=== PATIENT | female | born 1980 | race Caucasian/White ===

== ENCOUNTER 2020-08-03 12:23 | Emergency (ER) | payer OTHER, MEDICAID, SELFPAY ==
[2020-08-03 12:30] VITALS: BP 162/109; PULSE 101; PULSE 91; RESP 20; RESP 26; TEMP 37.1; O2SAT 100; BMI 22.2
[2020-08-03 12:31] VITALS: BP 162/109; PULSE 85; RESP 21; O2SAT 100
[2020-08-03] MEDS: ONDANSETRON 4 MG/2 ML INJ (12:45)
[2020-08-03 13:00] VITALS: BP 147/95; PULSE 77; RESP 21; O2SAT 98
[2020-08-03 13:16] LABS: Prothrombin Time 10.6 SECONDS (10.1-12.7)
[2020-08-03 13:18] LABS: PTT Partial Thromboplastin Tim 31 SECONDS (26.4-36.2)
[2020-08-03 13:19] LABS: Alanine Aminotransferase 31 IU/L (<35); Albumin 5.1 g/dL (3.5-5.0); Albumin Globulin Ratio 1.2 (1.0-2.8); Alkaline Phosphatase 83 U/L (38-126); Aspartate Aminotransferase 37 IU/L (14-36); BUN Creatinine Ratio 13.6 (6-22); Bilirubin Total 0.7 mg/dL (0.2-1.3); Blood Urea Nitrogen 12 mg/dL (7-17); Carbon Dioxide 21 mmol/L (22-32); Chloride 96 mmol/L (98-107); Estimated Glomerular Filt Rate > 60.0 mL/min (>60); Globulin 4.2 g/dL (1.7-4.1); Glucose 115 mg/dL (70-100); HEMOLYSIS 16 (0-50); Lipase 65 U/L (23-300); Potassium 3.1 mmol/L (3.4-5.1); Sodium 133 mmol/L (137-145); Total Protein 9.3 g/dL (6.3-8.2)
[2020-08-03 13:24] LABS: Add Manual Diff / Slide Review NO; Basophils Absolute Auto 0 /uL (0-100); Basophils Percent Auto 0.4 % (0-2); Eosinophils Absolute Auto 0 /uL (0-450); Eosinophils Percent Auto 0.4 % (2-4); Hematocrit 46.5 % (36-46); Hemoglobin 15.6 g/dL (12.0-16.0); Lymphocytes Absolute Auto 2600 /uL (1100-4500); Mean Corpuscular HGB Conc 33.5 % (30-36); Mean Corpuscular Hemoglobin 29.5 PG (26-34); Mean Corpuscular Volume 88.2 fL (80-100); Monocytes Absolute Auto 1600 /uL (0-900); Monocytes Percent Auto 13.5 % (3-14); Neutrophils Absolute Auto 7400 /uL (1500-7000); Neutrophils Percent Auto 63.7 % (50-75); Platelet Count 415 X10^3/uL (150-400); Red Blood Cell Count 5.28 X10^6/uL (4.0-5.2); Red Cell Distribution Width 16.8 % (11.6-14.8); White Blood Cell Count 11.7 X10^3/uL (4.5-11.0)
[2020-08-03 13:30] VITALS: BP 146/94; PULSE 81; RESP 21; O2SAT 98
--- NOTE | 2020-08-03 13:35 | ED.ABDPAIN ---
HPI - Abdominal Pain General Chief Complaint: Abdominal Pain Stated Complaint: Upper Gastric Pain Time Seen by Provider: 08/03/20 13:35 Source: patient Mode of arrival: Ambulatory Limitations: no limitations History of Present Illness HPI narrative: This is a 40-year-old female comes to emergency department with complaint of cough acute on chronic abdominal pain. Patient states she has had this for prolonged period time. She is typically treated at [facility] but is here today for 1 of her children's lacrosse games. Patient states that she has had multiple evaluations she sees Gastroenterology and they have not found an exact cause she states she does use marijuana her last use was approximately 2 weeks ago. She does find hot baths or helpful if she catches it early enough. She denies fevers or chills. She states she has not really been vomiting but will sometimes make herself vomit. She denies any diarrhea constipation. She denies any new urinary symptoms such as frequency or dysuria. She states she has had multiple episodes of imaging and does not wish to be imaged today. Patient states this is very typical of her prior episodes. She states in the past she has been treated Zofran and 8 mg of morphine. Patient states she has had her gallbladder removed but denies any other surgeries. She denies any allergies to medications. Related Data Allergies Allergy/AdvReac Type Severity Reaction Status Date / Time No Known Drug Allergies Allergy Verified 08/03/20 12:33 Review of Systems Review of Systems ROS Unobtainable: All systems reviewed & are unremarkable except as noted in HPI and below Patient History Social History Smoking Status: Never smoker Smoking Status: Never smoker alcohol intake frequency: 0-2 drinks per day Substance Use Type: marijuana Exam Narrative Exam Narrative: GENERAL: Alert and oriented x three, thin female in moderate distress. HEENT: Head normocephalic, atraumatic, EOMI, pupils reactive, face symmetric, moist mucous membranes NECK: Supple, full range of motion CARDIOVASCULAR: Regular but tachycardic rate and rhythm without murmurs, rubs or gallops. No JVD. RESPIRATORY: Breath sounds equal bilaterally, no wheezes rales or rhonchi. ABDOMEN: Soft, generalized tenderness. Nondistended. Normoactive bowel sounds all 4 quadrants. No guarding or rebound, rigidity, no mass : No CVA tenderness EXTREMITIES: Normal range of motion, no clubbing or edema. Neurovascularly intact NEUROLOGICAL: Cranial nerves II through XII grossly intact. Moving all extremities SKIN: Warm, dry, no petechiae, no rashes or lesions. Initial Vital Signs Initial Vital Signs: Vital Signs Temperature 98.8 F 08/03/20 12:30 Pulse Rate 101 H 08/03/20 12:30 Respiratory Rate 20 08/03/20 12:30 Blood Pressure 162/109 H 08/03/20 12:30 Pulse Oximetry 100 08/03/20 12:30 Course Orders Ordered: ED Orders 08/03/20 12:35 EKG-12 Lead Stat 08/03/20 12:37 Complete Blood Count AUTO DIFF Stat Comprehensive Metabolic Panel Stat Lipase Stat Partial Thromboplastin Time Stat Test Serum,Qual Stat Prothrombin Time INR Stat Discontinued Medications Diphenhydramine HCl (Diphenhydramine 50 Mg/Ml Vial) 50 mg IV NOW ONE Stop: 08/03/20 13:43 Last Admin: 08/03/20 14:00 Dose: 50 mg Documented by: YENI Haloperidol (Haloperidol 5 Mg/Ml Vial) 5 mg IV NOW ONE Stop: 08/03/20 13:43 Last Admin: 08/03/20 14:01 Dose: 5 mg Documented by: YENI Sodium Chloride (Normal Saline 0.9%) 1,000 mls @ 1,000 mls/hr IV BOLUS ONE Stop: 08/03/20 14:34 Last Infusion: 08/03/20 14:49 Dose: 0 mls/hr Documented by: Admin: 08/03/20 14:00 Dose: 1,000 mls/hr Documented by: YENI Reevaluation(s) Reevaluation #1: Patient requesting to leave. Feeling much better. Time: 14:21 Vital Signs Vital signs: Vital Signs - 8 hr 08/03/20 13:00 08/03/20 13:30 08/03/20 14:00 Pulse Rate 77 81 96 H Respiratory Rate 21 24 Blood Pressure 147/95 H 146/94 H 137/98 H Pulse Oximetry 98 98 100 MDM - Abdominal Pain Lab Data Attestation: I reviewed the patient's lab results. Result diagrams: 08/03/20 12:37 08/03/20 12:37 Labs: Lab Results 08/03/20 08/03/20 08/03/20 Range/Units 12:37 12:37 12:37 WBC 11.7 H (4.5-11.0) X10^3/uL RBC 5.28 H (4.0-5.2) X10^6/uL Hgb 15.6 (12.0-16.0) g/dL Hct 46.5 H (36-46) % MCV 88.2 (80-100) fL MCH 29.5 (26-34) PG MCHC 33.5 (30-36) % RDW 16.8 H (11.6-14.8) % Plt Count 415 H (150-400) X10^3/uL Neut % (Auto) 63.7 (50-75) % Lymph % (Auto) 22.0 L (25-40) % Cameron % (Auto) 13.5 (3-14) % Eos % (Auto) 0.4 L (2-4) % Baso % (Auto) 0.4 (0-2) % Neut # (Auto) 7400 H (9887-7692) /uL Lymph # (Auto) 2600 (0420-6757) /uL Cameron # (Auto) 1600 H (0-900) /uL Eos # (Auto) 0 (0-450) /uL Baso # (Auto) 0 (0-100) /uL PT 10.6 (10.1-12.7) SECONDS INR 1.0 (0.9-1.3) APTT 31 (26.4-36.2) SECONDS Sodium 133 L (137-145) mmol/L Potassium 3.1 L (3.4-5.1) mmol/L Chloride 96 L (98-107) mmol/L Carbon Dioxide 21 L (22-32) mmol/L BUN 12 (7-17) mg/dL Creatinine 0.88 (0.52-1.04) mg/dL Estimated GFR > 60.0 (>60) mL/min BUN/Creatinine Ratio 13.6 (6-22) Glucose 115 H (70-100) mg/dL Calcium 11.0 H (8.4-10.2) mg/dL Total Bilirubin 0.7 (0.2-1.3) mg/dL AST 37 H (14-36) IU/L ALT 31 (<35) IU/L Alkaline Phosphatase 83 (38-126) U/L Total Protein 9.3 H (6.3-8.2) g/dL Albumin 5.1 H (3.5-5.0) g/dL Globulin 4.2 H (1.7-4.1) g/dL Albumin/Globulin Ratio 1.2 (1.0-2.8) Lipase 65 (23-300) U/L Serum , Qual (Negative) 08/03/20 Range/Units 12:37 WBC (4.5-11.0) X10^3/uL RBC (4.0-5.2) X10^6/uL Hgb (12.0-16.0) g/dL Hct (36-46) % MCV (80-100) fL MCH (26-34) PG MCHC (30-36) % RDW (11.6-14.8) % Plt Count (150-400) X10^3/uL Neut % (Auto) (50-75) % Lymph % (Auto) (25-40) % Cameron % (Auto) (3-14) % Eos % (Auto) (2-4) % Baso % (Auto) (0-2) % Neut # (Auto) (5853-2635) /uL Lymph # (Auto) (1703-0100) /uL Cameron # (Auto) (0-900) /uL Eos # (Auto) (0-450) /uL Baso # (Auto) (0-100) /uL PT (10.1-12.7) SECONDS INR (0.9-1.3) APTT (26.4-36.2) SECONDS Sodium (137-145) mmol/L Potassium (3.4-5.1) mmol/L Chloride (98-107) mmol/L Carbon Dioxide (22-32) mmol/L BUN (7-17) mg/dL Creatinine (0.52-1.04) mg/dL Estimated GFR (>60) mL/min BUN/Creatinine Ratio (6-22) Glucose (70-100) mg/dL Calcium (8.4-10.2) mg/dL Total Bilirubin (0.2-1.3) mg/dL AST (14-36) IU/L ALT (<35) IU/L Alkaline Phosphatase (38-126) U/L Total Protein (6.3-8.2) g/dL Albumin (3.5-5.0) g/dL Globulin (1.7-4.1) g/dL Albumin/Globulin Ratio (1.0-2.8) Lipase (23-300) U/L Serum , Qual Negative (Negative) ECG Data Attestation: I personally reviewed and interpreted this ECG as follows: Prior ECG tracings: not available for review Interpretation: Sinus rhythm rate of 95 P are 146 QRS is 74 and QTC of 456. Nonspecific ST change. MDM Narrative Medical decision making narrative: KUMAR report with multiple visits to [facility] in past including July. Contacted for records from most recent ER visit. Patient's labs today show mild hyponatremia as well as hypokalemia. Patient's glucose is 115 or calciums elevated at 11 with mildly elevated AST at 37 and otherwise normal LFTs. Patient's total protein, albumin globulin are all elevated. Patient also has changes with her white count 11.7, hematocrit of 46 and platelets of 415. She has a normal neutrophil percentage in count but has low lymphocytes. Patient was given fluids, Haldol and Benadryl and Zofran here in the department and was requesting to leave the department within an hour. Patient is otherwise clinically stable. Patient's records did arrived after she had left the department. It was noted that she was seen on the . At that time she received Fluids, Haldol, Protonix, magnesium and bentyl with improvement. Discharge Plan Departure Patient Disposition: Home Clinical Impression: Abdominal pain Activity Restrictions/Additional Instructions: Follow up with your physician for recheck as needed. Please continue home medications as prescribed. Please return to the emergency department if you are having fevers, new or worsening abdominal pain, persistent vomiting, black or bloody stools other new or concerning symptoms. Referrals: Alfa Mobley DO [Primary Care Provider] -
[2020-08-03 14:00] VITALS: BP 137/98; PULSE 96; RESP 24; O2SAT 100
[2020-08-03] MEDS: SODIUM CHLORIDE 0.9% 1,000 ML 1000 ML IV (14:00)
[2020-08-03] MEDS: diphenhydrAMINE 50 MG/ML VIAL IV (14:00)
[2020-08-03] MEDS: HALOPERIDOL 5 MG/ML VIAL IV (14:01)
[2020-08-03 14:04] LABS: Pregnancy Test Serum,Qual Negative (Negative)
--- NOTE | 2020-08-03 14:49 | PC.NURSE ---
1400: pt received haldol and benadryl IV and is asking to be DC'd, Dr Arcos made aware.
== END 2020-08-03 14:26 | disposition home or self-care (01) ==
PROVIDERS: Emergency Provider Emergency Medicine; PCP Family Medicine
DX: R10.9 Unspecified abdominal pain (principal); R05 Cough; E87.1 Hypo-osmolality and hyponatremia; E87.6 Hypokalemia; R79.89 Other specified abnormal findings of blood chemistry
CPT/HCPCS: 36415; 80053; 83690; 84703; 85025; 85610; 85730; 93005; 96365; 96375; 99284; J1200; J1630; J2405